=== PATIENT | female | born 1975 | race Caucasian/White ===

== ENCOUNTER 2021-06-07 11:18 | Outpatient (CLI) | payer OTHER ==
[2021-06-07] MEDS ORDERED: MULT-658 PO (11:49)
[2021-06-07] MEDS ORDERED: BIRTH CONTROL PO (11:49)
[2021-06-07 12:19] LABS: HCG UR SG 1.008 (1.003-1.030); MICROSCOPIC AUTO
[2021-06-07 12:24] LABS: BASOPHILS % (AUTO) 1 % (0-1); EOSINOPHILS % (AUTO) 1 % (1-7); LYMPHOCYTES % (AUTO) 30 % (22-44); MEAN CORPUSCULAR HEMOGLOBIN 19.8 pg (27.0-34.8); MEAN CORPUSCULAR HGB CONC 30.7 g/dL (32.4-35.8); MEAN PLATELET VOLUME 8.3 fL (7.4-10.4); MONOCYTES % (AUTO) 8 % (2-9); NEUTROPHILS % (AUTO) 61 % (42-75); PLATELET COUNT 542 x10^3/uL (130-400); RED BLOOD COUNT 5.01 x10^6/uL (3.82-5.3); RED CELL DISTRIBUTION WIDTH 17.1 % (9.6-15.2)
[2021-06-07 12:58] LABS: ANISOCYTOSIS 1+; HYPOCHROMIA 1+; MICROCYTOSIS 1+
[2021-06-07 12:59] LABS: <PLATELET ESTIMATE> INCREASED; <PLT MORPHOLOGY> NORMAL PLT MORPH; OVALOCYTES 1+
== END 2021-06-07 23:59 | disposition home or self-care (01) ==
LOC: STAR 11:18
PROVIDERS: ATTEND Obstetrics & Gynecology
DX: Z01.812 Encounter for preprocedural laboratory examination (principal); Z20.822 Contact with and (suspected) exposure to COVID-19; D21.9 Benign neoplasm of connective and other soft tissue, unspecified; N92.0 Excessive and frequent menstruation with regular cycle; I49.1 Atrial premature depolarization; M54.5 Low back pain
CPT/HCPCS: 36415; 81001; 81025; 85025; 93005; U0003; U0005

== ENCOUNTER 2021-06-13 08:18 | Day surgery (SDC) | payer OTHER ==
[~2021-06-13] VITALS: Ht 160 cm; Wt 67.0 kg
[~2021-06-13 08:18] MED LIST: BIRTH CONTROL PO; MULT-658 PO
[2021-06-13 08:50] LABS: HCG UR SG 1.005 (1.003-1.030)
[2021-06-13] MEDS ORDERED: CHLORHEXIDINE 15 ML UDC ONE (08:57)
[2021-06-13] MEDS ORDERED: CHLORHEXIDINE 15 ML UDC PO ONE (09:00)
[2021-06-13] MEDS ORDERED: ACETAMINOPHEN 500 MG TABLET PO ONE (09:00)
[2021-06-13] MEDS ORDERED: CEFAZOLIN PMX 2GM/50ML 50 ML IVPB ONE (09:00)
[2021-06-13] MEDS ORDERED: LACTATED RINGERS 1,000 ML IV SCH (09:00)
[2021-06-13] MEDS ORDERED: FENTANYL PF 250 MCG/5ML ONE (09:30)
[2021-06-13] MEDS ORDERED: MIDAZOLAM 1 MG/ML, 2ML ONE (09:30)
[2021-06-13] MEDS ORDERED: FLUORESCEIN SODIUM 500 MG/5 ML ONE (10:40)
[2021-06-13] MEDS ORDERED: BUPIVACAINE/PF 0.25% ONE (10:40)
[2021-06-13] MEDS ORDERED: PROPOFOL 10 MG/ML, 20ML ONE (11:02)
[2021-06-13] MEDS ORDERED: ONDANSETRON 2MG/ML, 2ML ONE (11:02)
[2021-06-13] MEDS ORDERED: ROCURONIUM 10 MG/ML,10ML ONE (11:02)
[2021-06-13] MEDS ORDERED: KETOROLAC 30 MG/1 ML ONE (11:02)
[2021-06-13] MEDS ORDERED: SUGAMMADEX 200 MG/2 ML IVPush ONE (11:02)
[2021-06-13] MEDS ORDERED: DEXAMETHASONE 4 MG/ML, 1ML ONE (11:02)
[2021-06-13] MEDS ORDERED: CEFAZOLIN 1,000 MG ONE (11:02)
[2021-06-13] MEDS ORDERED: BUPIVACAINE/PF-EPI 0.25% 1:200K INFIL ONE (11:22)
[2021-06-13] MEDS ORDERED: PROMETHAZINE 25 MG/ML, 1ML IVPush PRN (12:00)
[2021-06-13] MEDS ORDERED: FENTANYL PF 100 MCG/2ML IV PRN (12:00)
[2021-06-13] MEDS ORDERED: ONDANSETRON 2MG/ML, 2ML IVPush PRN (12:00)
[2021-06-13] MEDS ORDERED: HALOPERIDOL 5 MG/ML IV PRN (12:00)
[2021-06-13] MEDS ORDERED: LORazepam 2 MG/ML, 1ML IVPush PRN (12:00)
[2021-06-13] MEDS ORDERED: MEPERIDINE/PF 25MG/0.5ML IVPush PRN (12:00)
[2021-06-13] MEDS ORDERED: OXYcodone 5 MG/5 ML ORAL.SOL UDC PO PRN (12:00)
[2021-06-13] MEDS ORDERED: HYDROmorphone 1 MG/ML, 1ML INJ IVPush PRN (12:00)
[2021-06-13] MEDS ORDERED: FENTANYL PF 100 MCG/2ML ONE ×2 (12:04→12:37)
== END 2021-06-13 15:39 | disposition home or self-care (01) ==
LOC: OUT 08:18
PROVIDERS: ATTEND Obstetrics & Gynecology
DX: D25.9 Leiomyoma of uterus, unspecified (principal); N92.0 Excessive and frequent menstruation with regular cycle; N94.6 Dysmenorrhea, unspecified; N80.0 Endometriosis of uterus; G43.829 Menstrual migraine, not intractable, without status migrainosus; D64.9 Anemia, unspecified; Z79.899 Other long term (current) drug therapy
CPT/HCPCS: 36415; 58554; 81025; 86850; 86900; 88307; J0690; J1100; J1885; J2250; J2405; J2704; J3010; J7120